=== PATIENT | male | born 1990 | race Two or more races ===

== ENCOUNTER 2017-10-23 16:26 | Emergency (ER) | payer SELFPAY ==
[~2017-10-23] VITALS: Ht 177.8 cm; Wt 86.4 kg
[2017-10-23 16:34] VITALS: BP 138/72
[2017-10-23] MEDS ORDERED: PERTUSS(ACELL),DIPH,TET VAC/PF 0.5 ML VIAL IM ONE (16:45)
[2017-10-23] MEDS ORDERED: IBUPROFEN 600 MG TABLET PO ONE (16:45)
[2017-10-23] MEDS ORDERED: AMOX TR/POT CLAV 500 MG/125 MG TABLET PO ONE (16:45)
[2017-10-23] MEDS ORDERED: BUPIVACAINE HCL/PF 0.5% 10 ML VIAL INJ ONE (17:30)
== END 2017-10-23 18:24 | disposition home or self-care (01) ==
LOC: EMS 16:27 → EDBD 16:27 → EMS 18:24
DX: S51.852A Open bite of left forearm, initial encounter (principal); W54.0XXA Bitten by dog, initial encounter; Y93.89 Activity, other specified; Y92.89 Other specified places as the place of occurrence of the external cause; Y99.8 Other external cause status
CPT/HCPCS: 73090; 90471; 90715; 99284; J3490